=== PATIENT | female | born 1970 | race Caucasian/White ===

== ENCOUNTER 2017-12-24 13:00 | Outpatient (RCR) | payer OTHER, SELFPAY ==
--- NOTE | 2017-12-01 15:30 | IE_ITS ---
Date: 12/01/17 Referring: Yan Hilliard MD M.D. Diagnosis: s/p gastrocnemius equinus of left lower extremity, Impingement syndrome of left ankle, painful orthopaedic hardware, s/p removal P.T. Diagnosis: s/p gastrocnemius equinus of left lower extremity, Impingement syndrome of left ankle, painful orthopaedic hardware, s/p removal SUBJECTIVE: History of Present Illness: Patient is a 47 year old female referred for physical therapy s/p surgery for gastrocnemius equinus of left lower extremity, impingement syndrome of left ankle, and painful orthopaedic hardware on 11/13/[address] Yan Kiser MD. She had the hardware removed from lateral side of her ankle, gastrocnemius lengthening, and removal of scar tissue. Her original injury was a distal fibula fracture in June 2016 and she also developed complex regional pain syndrome. She states she is having bad nerve pain on the top of her left foot that goes up to level of her knee. She is sleeping with night splint that promotes dorsiflexion. She is having difficulty sleeping due to the pain and the boot being uncomfortable. She tries to sleep in the bed but states she gets her best sleep in the recliner. She is taking Tylenol and Ibuprofen for pain. She states ice helps but she has not been icing it recently. States she was ambulating with crutches until about a week ago. 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 She has numbness and tingling on the medial side of her ankle. Has some numbness and tingling on the lateral side of her ankle as well but this has improved. She is able to drive. She has follow up with surgeon on December 21. Pain Ratin-8/10 at rest, 8-9/10 at worst. Pain Location: left ankle and foot up anterior leg to knee level. Her nerve pain is the worst on the top of her foot. Prior Level of Function: independent Current Level of Function: difficulty sleeping, unable to work, difficulty playing hockey, difficulty negotiating stairs, difficulty ambulating community distances. Previous Treatment: Has had PT in the past for her left ankle. Social: Lives alone in home with 12 stairs. Is having difficulty negotiating the stairs. 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 Comorbidities: left distal fibula fracture on June 2016, complex regional pain syndrome affecting left foot, ankle, and leg Falls in the last year: No Reported hospitalizations in the last year - No Medications: Tylenol, Aleve Quality of Life: Good Standardized Measures: LEFS score: 68% impaired OBJECTIVE: Observation: All incisions are healing well without drainage. Has steri strips on incisions still, bruising left medial knee and inferior to medial malleoli Gait: Antalgic with decreased stance time on the left, decreased dorsiflexion and knee flexion on left, decreased estuardo, no AD. Edema: Minimal swelling left ankle. Girth measurements: Around malleoli right 23 cm, left 23.75cm. Midfoot right 21cm, left 21cm. ROM: Left ankle AROM DF lacking 5 degrees, PF 45 degrees, eversion 15 degrees, inversion 30 degrees. Right ankle AROM DF 10 degrees, PF 70 degrees, inversion 35 degrees, eversion 20 degrees. Hip and knee AROM WFL. Strength: Right ankle strength 5/5, left ankle strength not assessed at this time due to pain. Neuro: numbness and tingling left medial ankle and some in lateral ankle that has gotten better. Treatment: IE: 98853 Patient Education: Patient educated to use crutches or at least one crutch on her right side to help allow for a more normal gait pattern. Educated in home exercise program including ankle pumps, ankle circles, resisted DF, PF, EV, INV , side lying hip abduction, and bridges. Patient states she has orange, green, and blue theratubes at home. Patient given red theraband for ankle strengthening exercises. Educated to continue to ice at home. Cryotherapy x 10 minutes to left ankle in supine. Direct treatment time: 50 minutes Total treatment time: 60 minutes ASSESSMENT: Patient is a 47 year-old female referred for PT services with the diagnosis of s /p gastrocnemius equinus of left lower extremity, Impingement syndrome of left ankle, painful orthopaedic hardware. Patient presents with clinical signs and symptoms consistent with diagnosis, as demonstrated by the following impairment level findings: pain, swelling, decreased ROM, decreased motor control, impaired gait, impaired stair negotiation. Impairments are contributing to the following functional limitations: difficulty sleeping, unable to work, difficulty playing hockey, difficulty negotiating stairs, difficulty ambulating community distances. Patient is assessed as: Low 32174 complexity, based on the following: History: See comorbidities and social history. Examination: See above for functional limitations and impairments. Presentation: Stable Decision-Making: Low complexity 68 % Disability based on LEFS Patient requires skilled PT intervention to remediate the above functional limitations to return to: __X_ Premorbid level of function __X__ Return to full functional mobility __X__ Return to work demands __X__ Improve QOL Prognosis: Good STG: __6__ weeks. 1. Patient will report pain as no more than 6/10 in left ankle, foot, and leg. 2. Patient will demonstrate 5 degree improvement or better in left ankle AROM. 3. Patient will score 45% impaired or less on the LEFS. 4. Independent HEP. LTG: __12__ weeks. 1. Patient will report pain no more then 3/10 in left ankle, foot, and leg. 2. Patient will demonstrate 15 degree improvement in ankle PF and 10 degrees in DF AROM. 3. Patient will demonstrate 5/5 strength all LE muscle groups. 4. Patient will ambulate community distances on even and uneven surfaces independently with no antalgia. 5. Patient will negotiate 12 stairs independently with reciprocal pattern. 6. Patient will score 20% impaired or less on the LEFS. 7. Independent HEP PLAN: Patient to be seen 2 x per week, for 12 weeks, adjusting frequency of visits per patient symptoms and response to treatment. Will perform aquatic therapy once incisions are healed in about 6 weeks. Treatment to include: Manual therapy - 86625 PROM, soft tissue stretching, joint mobilizations, STM, scar tissue massage Therapeutic exercise - 66524. A/AAROM, LE strengthening, education in HEP, aquatic therapy once incisions have completely healed to avoid risk of infection. Gait training, stairs training, static and dynamic balance activities, cryotherapy for pain control. Thank you for this referral. Please do not hesitate to contact me with any questions or concerns regarding this patient's plan of care.
--- NOTE | 2017-12-03 13:54 | PTTR_ITS ---
DATE: 12/03/17 SUBJECTIVE: Corry indicates that she continues to be extremely sensitive in the scar region of the lateral left ankle. OBJECTIVE: Manual therapy: (53590b3). Did receive PROM into plantar flexion, dorsiflexion, inversion and eversion as well as lymph drainage throughout the entire left LE. Was instructed in stimulation of lymph nodes at the inguinal region and behind the knee. We did discuss continued use of crutches due to ongoing antalgia due to patient' s sensitivity in her left ankle. Therapeutic procedures (19262b9). * x HEP review: had patient perform 20 repetitions each of t-band resisted ( red) ankle PREs as well as AROM into dorsiflexion, plantar flexion and ankle circles clockwise and counter clockwise. Also, performed 20 repetitions each of left hip side lying abduction and bridging. Did require cueing for proper positioning and activation of specific muscles. * Ended with 10 minutes of cryotherapy to the left ankle with leg elevated via wedge pillow x10 minutes at no charge. Direct treatment time: 40 minutes Total treatment time: 40 minutes. SG/gc
--- NOTE | 2017-12-08 14:00 | PTTR_ITS ---
DATE: December 08, 2017 SUBJECTIVE: Ginette reports that she continues to note the nerve irritation to be the most annoying. She feels that her ROM is improving and that she is walking with less antalgia when she slows down. Swelling has been less. OBJECTIVE: Upon observation continues to present with moderate antalgia. She can self correct with a slower estuardo. Emphasized the focus on her heel to toe mechanics to avoid the compensatory gait. Manual therapy: (37304m6). Subtalar and talocrural joint mobilization provided throughout all planes to the left LE. STM throughout the entire left anterior and posterior lower leg. Scar desensitization also provided. P/AAROM performed throughout all planes. Improved end range mobility noted. Swelling has also reduced in comparison to IE. Therapeutic procedures (63379d4). * X See flow sheet: Incorporated theraband resistance training to the left ankle. Incorporated intrinsic stabilization of the foot with marble olive picker. Introduced cardiovascular endurance via NuStep. Was able to complete 10 minutes with manageable symptoms. Continued global LE strength with focus on the proximal stabilizers. See flow sheet for specifics. Fatigues quickly. * X Provided skilled instruction in proper exercise performance: promoting postural awareness and body mechanics * X Provided skilled manual cues to facilitate proper muscle recruitment and/ or movement pattern: avoiding compensatory movement patterns. Contrast Baths - 05981g4: Completed 3:1 ratio for a total of 12 minutes for desensitization to the left LE. Direct treatment time: 40 minutes Total treatment time: 52 minutes Will monitor her response to the contrast bath. Continue to advance per protocol. ROM steadily improving.
--- NOTE | 2017-12-10 14:30 | PTTR_ITS ---
DATE: 12/10/17 SUBJECTIVE: Corry indicates she continues to note discomfort in the lateral ankle region as well as ongoing electrical sensations when her lower leg is touched by her pets, or brushed up against something. Indicates she has been trying to do self massage for desensitization purposes. Manual therapy: (77218r7). Did receive subtalar, talocrural joint mobilizations as well as P/AAROM throughout all planes. Soft tissue mobilization throughout the L LE for lymph drainage as well as scar tissue massage was performed. Therapeutic procedures (36943m2). * X See flow sheet: focus was on strengthening of the L LE. * x Provided skilled instruction in proper exercise performance: * x Provided skilled manual cues to facilitate proper muscle recruitment and/ or movement pattern: Discussed importance of avoidance of limping, really focusing on heel to toe mechanics as discussed with primary therapist last session. Contrast Baths - 22715p8: Did complete this utilizing 3-1 hot/cold ratio x12 mins with L LE. Direct treatment time: 35 mins Total treatment time: 47 mins SG/dl
--- NOTE | 2017-12-15 09:40 | PTTR_ITS ---
DATE: 12/15/17 SUBJECTIVE: Corry states that she is doing fairly well. She continues to have hyper sensitivity t/o foot and anterior portion of ankle. OBJECTIVE: Manual therapy: (00140p8). mobilizations of foot and ankle including distractions, as well as ROM. Stretching of gastroc/soleus region. Scar tissue mobilizations t/o each incisional region. Therapeutic procedures (15172t1). * x See flow sheet: for global ankle strengthening as well as foot intrinsics. Finished via wellness at no charge. * x Provided skilled instruction in proper exercise performance: * x Contrast Baths - 91933k8: for desensitization purposes x 12 min. Direct treatment time: 30 min Total treatment time: 50 min
--- NOTE | 2017-12-17 13:30 | PTTR_ITS ---
DATE: December 17, 2017 SUBJECTIVE: Ginette continues to note ongoing nerve irritation as the primary complaint. She overall feels that her ROM and level of mobility continue to improve. She follows up with her surgeon on Thursday of next week. Will proceed via his order at that time. OBJECTIVE: Manual therapy: (78821k9).P/AAROM to the left ankle. Soft tissue stretching to the gastroc and soleus within symptom allowance. Scar tissue mobilization along with desensitization techniques throughout the LE. Subtalar and talucrural joint mobilization provided Gr II. Good end range mobility throughout all planes. Therapeutic procedures (43260h5). * X See flow sheet: Continued LE strength and stabilization program per protocol. Will continue with advancements within symptom tolerance and per MD order via protocol. * X Provided skilled instruction in proper exercise performance: * X Provided skilled manual cues to facilitate proper muscle recruitment and/ or movement pattern: Contrast Baths - 91421s4: 12 minutes 3 to 1 ratio to the left LE for pain and edema management along with desensitization. Direct treatment time: 35 minutes Total treatment time: 47 minutes
--- NOTE | 2017-12-22 11:18 | PTTR_ITS ---
DATE: 12/22/17 SUBJECTIVE: Corry states that she is doing a little better everyday. Her biggest complaint continues to be sharp shooting pain in front of foot and down to toes. OBJECTIVE: Manual therapy: (96637r7). mobilizations of foot and ankle including dorsal and volar glides, distractions and ROM. Scar tissue work t/o each incision region. I did utilize Graston tool FOR IASTM of her medial calf incision. Kinesiotape applied for scar tissue on this incision at of session. Therapeutic procedures (57701x4). * x See flow sheet: for global LE strength with focus on ankle as well as balance and proprioceptive work on a variety of surfaces. * x Provided skilled instruction in proper exercise performance: to avoid compensation. * x Contrast Baths - 50744j0: x 12 min to left foot, ending in the cold. Direct treatment time: 35 min Total treatment time: 50 min
--- NOTE | 2017-12-24 13:00 | PTTR_ITS ---
DATE: December 24, 2017 SUBJECTIVE: Ginette indicates she returned to work on Thursday 1/2 days. She has tolerated this well. She reports that her follow up went well and he is overall pleased with her improvement via Ginette's report. She will begin the aquatic program next week. She is in hopes that the water will reduce the nerve irritation that remains her chief complaint. OBJECTIVE: Manual therapy: (85102m1).Subtalar/talocrural joint mobilizations Gr II. P/ AAROM throughout all planes to the left. STM throughout the gastroc and soleus followed by scar tissue mobilization. Therapeutic procedures (91252c2). * X See flow sheet: Open and closed chain stabilization with progression per protocol. Increased closed chain and open chain strength and stabilization along with proprioceptive balance activities. * X Provided skilled instruction in proper exercise performance: * X Provided skilled manual cues to facilitate proper muscle recruitment and/ or movement pattern: Contrast Baths - 36536a3: 3 to 1 ratio for a total of 12 minutes to the left LE. Will proceed to the aquatic therapy setting with progression of protocol within symptom allowance. Will follow up in clinic in 2 weeks. Direct treatment time: 30 minutes Total treatment time: 42 minutes
== END 2017-12-25 23:59 | disposition home or self-care (01) ==
LOC: PT 13:00
PROVIDERS: PCP Nurse Practitioner Family
DX: S82.832D Other fracture of upper and lower end of left fibula, subsequent encounter for closed fracture with routine healing (principal)
CPT/HCPCS: 97034; 97110; 97140; 97161

== ENCOUNTER 2019-01-27 10:32 | Outpatient (CLI) | payer OTHER, SELFPAY ==
--- NOTE | 2019-01-27 10:27 | DI.RAD_ITS ---
EXAM: XR ANKLE LT COMPLETE INDICATION: HISTORY OF FRACTURE. COMPARISON: LEFT ANKLE COMPLETE from 04/15/2017 TECHNIQUE: 2D digital imaging was performed. FINDINGS: Three views were obtained. Previously described plate and screw fixation of the distal fibula has be en removed. The ankle mortise appears well maintained. 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 Minimal degenerative spurring noted at the tibiotalar kalpesh nt. IMPRESSION:
== END 2019-01-27 10:52 ==
PROVIDERS: PCP Nurse Practitioner Family; Visit Provider Student in an Organized Health Care Education/Training Program
DX: S82.65XD Nondisplaced fracture of lateral malleolus of left fibula, subsequent encounter for closed fracture with routine healing (principal); M81.8 Other osteoporosis without current pathological fracture
CPT/HCPCS: 73610

== ENCOUNTER 2019-11-09 01:26 | Outpatient (CLI) | payer MEDICAID, SELFPAY ==
[2019-11-09 13:13] LABS: HCT 41.9 % (36.0-46.0); HGB 14.7 g/dL (12.0-15.5); Mean Corp. HGB Concentration 35.1 g/dL (32.0-36.0); Mean Corpuscular Hemoglobin 33.1 pg (27.0-33.0); Mean Corpuscular Volume 94.4 fL (80-95); Mean Platelet Volume 10.3 fL (8.0-11.0); Platelet Count 225 x1000/uL (130-400); RBC 4.44 m/cumm (4.00-5.20); RBC Distribution Width 12.7 % (11.7-14.6); White Blood Cell Count 7.64 k/cumm (4.4-10.8)
[2019-11-09 14:12] LABS: Anion Gap 9.7 mmol/L (3-11); BUN 13 mg/dL (7-18); CO2 26.3 mmol/L (21.0-32.0); CREATININE 0.94 mg/dL (0.55-1.02); Calcium 8.8 mg/dL (8.5-10.1); Chloride 105 mmol/L (98-107); FREE T4 0.97 ng/dL (0.76-1.46); Glucose 125 mg/dL (74-106); Potassium 3.9 mmol/L (3.5-5.1); Sodium 141 mmol/L (136-145)
== END 2019-11-09 01:46 ==
PROVIDERS: PCP Nurse Practitioner Family; Visit Provider Nurse Practitioner Family
DX: R53.83 Other fatigue (principal); Z86.39 Personal history of other endocrine, nutritional and metabolic disease
CPT/HCPCS: 36415; 80048; 82306; 85027; 84439; 84443

== ENCOUNTER 2020-10-23 10:44 | Outpatient (REF) | payer MEDICAID, SELFPAY ==
[2020-10-23 22:07] LABS: Abs Immature Grans 0.03 10^3/uL (0.0-0.06); Absolute Basophil Count 0.08 10^3/uL (0.0-0.2); Absolute Eosinophil Count 0.75 10^3/uL (0.0-0.7); Absolute Lymphocyte Count 3.36 10^3/uL (1.2-3.4); Absolute Monocyte Count 0.61 10^3/uL (0.1-0.8); Absolute Neutrophil Count 3.77 10^3/uL (1.2-6.7); Basophils % 0.9; Eosinophils % 8.7; HCT 45.1 % (36.0-46.0); HGB 15.4 g/dL (11.2-15.7); Immature Grans % 0.3; Lymphocytes % 39.1; MCHC 34.1 % (32.0-36.0); MCV 96.6 fL (80-95); MPV 10.6 fL (8.0-11.0); Monocytes % 7.1; Neutrophils % 43.9; Nucleated RBC 0 %; Platelet Count 257 10^3/uL (130-400); RBC 4.67 10^6/uL (3.93-5.22); RDW 12.6 % (11.7-14.6); RDW-SD 44.9 fL
[2020-10-25 10:17] LABS: Lyme Ab w Rflx to Lyme Confirm Negative (Negative)
[2020-10-26 11:58] LABS: Anaplasma phagocytophilum Negative (Negative); B. miyamotoi PCR Negative (Negative); Babesia divergens/MO-1 Negative (Negative); Babesia duncani Negative (Negative); Babesia microti Negative (Negative); Ehrlichia chaffeensis Negative (Negative); Ehrlichia ewingii/canis Negative (Negative); Ehrlichia muris eauclairensis Negative (Negative)
== END 2020-10-23 10:45 | disposition home or self-care (01) ==
LOC: LBN 10:44
PROVIDERS: PCP Nurse Practitioner Family; Visit Provider Physician Assistant
DX: R53.83 Other fatigue (principal); L65.9 Nonscarring hair loss, unspecified
CPT/HCPCS: 87798; 84443; 85025; 86618

== ENCOUNTER 2020-11-02 20:35 | Outpatient (REF) | payer MEDICAID, SELFPAY ==
[2020-11-03 15:02] LABS: Total Iron Binding Capacity 369 ug/dL (250-450)
[2020-11-03 15:16] LABS: Ferritin 260 ng/mL (8-252)
[2020-11-05 15:29] LABS: ANA Interpretation Positive (Negative); ANA Titer Pattern 1:320 Homogeneous
== END 2020-11-02 20:36 | disposition home or self-care (01) ==
LOC: LBN 20:35
PROVIDERS: PCP Nurse Practitioner Family; Visit Provider Nurse Practitioner Family
DX: R53.83 Other fatigue (principal); L65.9 Nonscarring hair loss, unspecified
CPT/HCPCS: 82728; 83550; 86038

== ENCOUNTER 2020-11-14 16:41 | Outpatient (REF) | payer MEDICAID, SELFPAY ==
[2020-11-14 21:52] LABS: Ferritin 263 ng/mL (8-252)
[2020-11-14 22:29] LABS: Iron 113 ug/dL (50-170)
[2020-11-20 11:16] LABS: dsDNA Ab, IgG 12.3 IU/mL (<30.0)
== END 2020-11-14 16:42 | disposition home or self-care (01) ==
LOC: LBN 16:41
PROVIDERS: PCP Nurse Practitioner Family; Visit Provider Family Medicine
DX: D64.9 Anemia, unspecified (principal); R76.8 Other specified abnormal immunological findings in serum
CPT/HCPCS: 82728; 83540; 86225

== ENCOUNTER 2020-11-19 12:44 | Outpatient (REF) | payer MEDICAID, SELFPAY ==
[2020-11-19 15:10] LABS: ALT 32 U/L (14-59); AST 26 U/L (15-37); Albumin 3.4 g/dL (3.4-5.0); Alkaline Phosphatase 46 U/L (46-116); Anion Gap 9.2 mmol/L (3-11); BUN 11 mg/dL (7-18); Bilirubin, Total 0.5 mg/dL (0.2-1.0); C-Reactive Protein 0.39 mg/dL (0.0-0.3); CO2 26.8 mmol/L (21.0-32.0); CREATININE 0.9 mg/dL (0.55-1.02); Calcium 8.6 mg/dL (8.5-10.1); Chloride 108 mmol/L (98-107); Glucose 106 mg/dL (74-106); Potassium 4.7 mmol/L (3.5-5.1); Sodium 144 mmol/L (136-145); Total Protein 6.1 g/dL (6.4-8.2)
[2020-11-19 15:11] LABS: ESR < 1 mm/hr (0-20)
== END 2020-11-19 12:45 | disposition home or self-care (01) ==
LOC: LBN 12:44
PROVIDERS: PCP Nurse Practitioner Family; Visit Provider Nurse Practitioner Family
DX: R76.0 Raised antibody titer; R76.8 Other specified abnormal immunological findings in serum
CPT/HCPCS: 80053; 85652; 86140

== ENCOUNTER 2021-01-11 03:49 | Outpatient (CLI) | payer MEDICAID, SELFPAY ==
--- NOTE | 2021-01-11 07:45 | DI.US_ITS ---
Exam(s) US UPPER EXTREMITY VENOUS RT EXAM: US UPPER EXTREMITY VENOUS RT CLINICAL HISTORY: SWELLING OF VEIN,PHLEBITIS,I80.9. TECHNIQUE: Ultrasound examination of the right upper extremity venous system(s) is performed using g rayscale, color-flow, and spectral Doppler analysis. COMPARISON: No exams were available for comparison FINDINGS: The right internal jugular, axillary, subclavian, basilic, brachial, radial, and ulnar veins are miller nt without evidence of thrombosis. There is hypoechoic thrombus seen in the proximal to mid right ce phalic vein. It measures 11.2 cm in length. IMPRESSION: 1. No DVT. 2. Superficial thrombophlebitis of the right cephalic vein. DATA REPOSITORY:
== END 2021-01-11 04:09 ==
PROVIDERS: PCP Nurse Practitioner Family; Visit Provider Physician Assistant
DX: I80.8 Phlebitis and thrombophlebitis of other sites (principal)
CPT/HCPCS: 93971

== ENCOUNTER 2021-01-16 13:08 | Outpatient (REF) | payer MEDICAID, SELFPAY ==
[2021-01-17 14:14] LABS: COVID-19 RT-PCR UVMMC Result Negative (Negative)
== END 2021-01-16 13:09 | disposition home or self-care (01) ==
LOC: LBN 13:08
PROVIDERS: PCP Nurse Practitioner Family; Visit Provider Family Medicine
DX: Z20.822 Contact with and (suspected) exposure to COVID-19 (principal)
CPT/HCPCS: U0003

== ENCOUNTER 2021-01-21 03:22 | Outpatient (CLI) | payer MEDICAID, SELFPAY ==
[2021-01-21 07:29] LABS: Abs Immature Grans 0.02 10^3/uL (0.0-0.06); Absolute Basophil Count 0.11 10^3/uL (0.0-0.2); Absolute Eosinophil Count 0.35 10^3/uL (0.0-0.7); Absolute Lymphocyte Count 2.85 10^3/uL (1.2-3.4); Absolute Monocyte Count 0.53 10^3/uL (0.1-0.8); Absolute Neutrophil Count 2.74 10^3/uL (1.2-6.7); Basophils % 1.7; Eosinophils % 5.3; HCT 43.2 % (36.0-46.0); HGB 14.7 g/dL (11.2-15.7); Immature Grans % 0.3; Lymphocytes % 43.2; MCV 96.9 fL (80-95); MPV 9.9 fL (8.0-11.0); Neutrophils % 41.5; Nucleated RBC 0 %; Platelet Count 207 10^3/uL (130-400); RBC 4.46 10^6/uL (3.93-5.22); RDW 12.4 % (11.7-14.6)
[2021-01-21 07:39] LABS: ESR < 1 mm/hr (0-20)
[2021-01-21 07:44] LABS: PTT Activated 23.2 sec (21.0-27.5); Prothrombin Time 10.4 sec (9.3-11.0)
[2021-01-21 08:58] LABS: ALT 46 U/L (14-59); AST 34 U/L (15-37); Albumin 3.4 g/dL (3.4-5.0); Alkaline Phosphatase 45 U/L (46-116); Anion Gap 8.2 mmol/L (3-11); BUN 12 mg/dL (7-18); Bilirubin, Total 0.5 mg/dL (0.2-1.0); CO2 27.8 mmol/L (21.0-32.0); CREATININE 0.9 mg/dL (0.55-1.02); Calcium 8.7 mg/dL (8.5-10.1); Chloride 107 mmol/L (98-107); Glucose 100 mg/dL (74-106); Potassium 4.1 mmol/L (3.5-5.1); Sodium 143 mmol/L (136-145); Total Protein 6.3 g/dL (6.4-8.2)
== END 2021-01-21 03:23 | disposition home or self-care (01) ==
LOC: LBO 03:22
PROVIDERS: PCP Nurse Practitioner Family; Visit Provider Family Medicine
DX: I82.611 Acute embolism and thrombosis of superficial veins of right upper extremity (principal)
CPT/HCPCS: 36415; 80053; 85652; 85025; 85610; 85730

== ENCOUNTER 2021-02-11 01:48 | Outpatient (CLI) | payer MEDICAID, SELFPAY ==
--- NOTE | 2021-02-11 06:30 | DI.US_ITS ---
Exam(s) US UPPER EXTREMITY VENOUS RT EXAM: US UPPER EXTREMITY VENOUS RT CLINICAL HISTORY: Continued pain, reassess SUPERFIICAL VENOUS THROMBOSIS, ACUTE THROMBOSIS, TECHNIQUE: GRAYSCALE, COLOR, DOPPLER IMAGING OF THE VENOUS SYSTEM OF THE UPPER EXTREMITY-BILATERAL COMPARISON: US US UPPER EXTREMITY VENOUS RT from 01/11/2021 FINDINGS: Basilic vein: Patent. Normal color-flow and normal compression and augmentation properties. Brachial vein(s):Patent. Normal color flow. Normal compression and augmentation properties. Cephalic vein:Patent. Normal color flow. Normal compression and augmentation properties. Previousl y present intraluminal thrombus is no longer seen. Axillary vein: Patent. Normal color flow. Normal compression and augmentation properties. Visualized subclavian vein: Patent. No obvious intraluminal thrombus. IMPRESSION: 1. There is presently no evidence of venous thrombosis in the right upper extremity. The previously present thrombus in the right cephalic vein is no longer seen. 2. There are no abnormal fluid collections evident in the upper extremity. DATA REPOSITORY:
== END 2021-02-11 02:08 ==
PROVIDERS: PCP Nurse Practitioner Family; Visit Provider Nurse Practitioner Family
DX: I82.611 Acute embolism and thrombosis of superficial veins of right upper extremity (principal)
CPT/HCPCS: 93971

== ENCOUNTER 2021-09-14 12:09 | Emergency (ER) | payer MEDICAID, SELFPAY ==
[2021-09-14 12:14] VITALS: BP 118/75; PULSE 82; RESP 18; TEMP 36.3; O2SAT 99
--- NOTE | 2021-09-14 12:26 | W.ED.GENAD ---
Discharge Plan Disposition Patient Disposition: HOME Condition: Stable Discharge Details Clinical Impression: Diverticulitis Primary Care Provider: Unknown,Unknown ED Provider: Anna Joy Home Meds and New Rx's Prescriptions: Continued fluticasone propionate 50 mcg/actuation spray,suspension 2 spray ELI HS PRN Wobble Board Qty: 1 0RF Rx Instructions: Use wobble board for dynamic ankle stabilization. Mirena 20 mcg/24 hours (5 yrs) 52 mg intrauterine device 1 device Intrauterine ONCE Qty: 1 Label Comments: Inserted 04/2019 hydrocodone-acetaminophen 5-325 mg tablet PO PRN PRN Label Comments: TAKE 1 TABLET BY MOUTH EVERY 6 HOURS NEEDED FOR PAIN amoxicillin-pot clavulanate 875-125 mg tablet 1 tab PO Label Comments: TAKE 1 TABLET BY MOUTH EVERY 12 HOURS FOR 10 DAYS Discharge Instructions Instructions: Diverticulitis (ED), Diverticulitis Diet (ED) Additional Instructions: The CT today shows that you have something called diverticulitis. Continue the antibiotic regimen you were previously prescribed. Return to the ER or be seen sooner for any severe worsening in abdominal pain, blood in your stool vomiting unable to keep down the antibiotics or vomiting up blood. Follow up with primary care provider in 3-5 days. Return to ED sooner if any worsening or concerns. Increase oral fluids. Please take Tylenol or Ibuprofen with food every 4-6 hours as needed for pain and swelling. Stand Alone Forms: Work Release Medical Decision Making 51-year-old female presents to the ER with chief complaint of right lower quadrant abdominal pain which radiates into the right flank since Thursday. Patient was seen on Thursday had a CT and some labs at [facility] was diagnosed with a intestinal infection. She was given Augmentin and Vicodin at that time. She reports that she has continued pain and is not feeling any better. She reports some nausea no vomiting and does endorse loose diarrhea. Denies any recent travel she reports feeling hot but no documented fever. No history of abdominal surgeries. Past medical history includes depression, GERD. Work-up ordered including CBC, CMP, lipase. CBC shows no leukocytosis no left shift, CMP largely within normal limits. Urinalysis is within normal limits. CT abdomen pelvis without contrast ordered. This patient was evaluated during a time of global shortage of iodinated contrast media. Based on guidance from the [employer], best practices, and local institutional approaches as an alternative path for evaluating and managing the patient may have been implemented in order to provide optimal care during shortage. The current situation has been discussed with the patient. [id number]: Discussed CT results with patient who verbalized understanding. She reports that this is in conjunction or same as what she was told when she was evaluated earlier this week. It did discuss that the Augmentin that she is on is an appropriate antibiotic for this. I also did discuss that the other regimen is Cipro and Flagyl which can be hard on the stomach. I will give patient a work note I did encourage her to continue the current prescribed antibiotic regimen discussed red flags and strict return instructions she verbalizes understanding. This text was generated using [employer] system, please disregard any oddities of phrase or misspellings. Medical Records Medical records reviewed: Yes I reviewed the patient's medical records. Imaging Data Radiologic Study: Imaging: CT Scan Radiologist's impression: TECHNIQUE: Imaging protocol: Computed tomography of the abdomen and pelvis without contrast. COMPARISON: CT LEFT LOWER EXTREM WO CONTRAST 12/05/2017 15:08 FINDINGS: Liver: Normal. No mass. Gallbladder and bile ducts: Normal. No calcified stones. No ductal dilation. Pancreas: Normal. No ductal dilation. Spleen: Normal. No splenomegaly. Adrenal glands: Normal. No mass. Kidneys and ureters: Normal. No hydronephrosis. Stomach and bowel: Diverticuli of the sigmoid colon with bowel wall thickening and pericolonic fat infiltration consistent with early diverticulitis. Appendix: No evidence of appendicitis. Intraperitoneal space: Unremarkable. No free air. No significant fluid collection. Vasculature: Unremarkable. No abdominal aortic aneurysm. Lymph nodes: Unremarkable. No enlarged lymph nodes. Urinary bladder: Unremarkable as visualized. Reproductive: IUD in place. Bones/joints: Degenerative changes of the spine. Soft tissues: Umbilical hernia. IMPRESSION:Early diverticulitis of the sigmoid colon. Lab Data Lab results reviewed: Yes I reviewed the patient's lab results. Labs: Laboratory Tests Range/Units 09/14/21 09/14/21 09/14/21 12:30 12:41 12:41 WBC (4.4-10.8) 10^3/uL 7.32 RBC (3.93-5.22) 10^6/uL 4.35 Hgb (11.2-15.7) g/dL 14.5 Hct (36.0-46.0) % 41.2 MCV (80-95) fL 95 MCH (27.0-33.0) pg 33.3 H MCHC (32.0-36.0) % 35.2 RDW (11.7-14.6) % 11.7 Plt Count (130-400) 10^3/uL 248 MPV (8.0-11.0) fL 9.8 Immature Gran % 0.3 Neutrophils % 52.0 Lymphocytes % 28.3 Monocytes % 7.2 Eosinophils % 11.7 Basophils % 0.5 Nucleated RBC % (0.0-0.3) % 0.0 Absolute Neutrophils (1.2-6.7) 10^3/uL 3.80 Absolute Lymphocytes (1.2-3.4) 10^3/uL 2.07 Absolute Monocytes (0.1-0.8) 10^3/uL 0.53 Absolute Eosinophils (0.0-0.7) 10^3/uL 0.86 H Absolute Basophils (0.0-0.2) 10^3/uL 0.04 Sodium (136-145) mmol/L 137 Potassium (3.5-5.1) mmol/L 3.5 Chloride (98-107) mmol/L 104 Carbon Dioxide (21.0-32.0) mmol/L 27.2 Anion Gap (3-11) mmol/L 5.8 BUN (7-18) mg/dL 7 Creatinine (0.55-1.02) mg/dL 0.9 Estimated GFR/1.73 m2 (mL/min/1.73m2) >= 60.00 Glucose (74-106) mg/dL 102 Calcium (8.5-10.1) mg/dL 8.7 Magnesium (1.8-2.4) mg/dL 2.3 Total Bilirubin (0.2-1.0) mg/dL 0.3 AST (15-37) U/L 21 ALT (14-59) U/L 32 Alkaline Phosphatase (46-116) U/L 45 L Total Protein (6.4-8.2) g/dL 6.6 Albumin (3.4-5.0) g/dL 3.1 L Lipase (73-393) U/L 47 Urine Color (Yellow) Yellow Urine Clarity (Clear) Clear Urine pH (5-8) 5.5 Ur Specific [place] (1.005-1.025) 1.025 Urine Protein (Negative) mg/dL Negative Urine Ketones (Negative) mg/dL Negative Urine Blood (Negative) Negative Urine Nitrite (Negative) Negative Urine Bilirubin (Negative) Negative Urine Urobilinogen (Up TO 0.2) EU/dL 0.2 Ur Leukocyte Esterase (Negative) Negative Urine Glucose (Negative) mg/dL Negative HPI General Mode of arrival: ambulatory. Date/Time Provider Initiated Documentation: 09/14/21 12:10. Limitations to Documentation: no limitations. Information obtained by: patient, RN notes reviewed and old records reviewed. HPI Narrative: 51-year-old female presents to the ER with chief complaint of right lower quadrant abdominal pain which radiates into the right flank since Thursday. Patient was seen on Thursday had a CT and some labs at [facility] was diagnosed with a intestinal infection. She was given Augmentin and Vicodin at that time. She reports that she has continued pain and is not feeling any better. She reports some nausea no vomiting and does endorse loose diarrhea. Denies any recent travel she reports feeling hot but no documented fever. No history of abdominal surgeries. Past medical history includes depression, GERD. Related Data Home Medications Medication Instructions Recorded Confirmed levonorgestrel 20 mcg/24 hours (7 1 device intrauterine ONCE #1 12/04/19 09/14/21 yrs) 52 mg intrauterine device implant (Mirena) fluticasone propionate 50 2 spray intranasal HS PRN 10/23/20 01/25/21 mcg/actuation nasal spray,suspension amoxicillin 875 mg-potassium 1 tab PO 09/14/21 clavulanate 125 mg tablet hydrocodone 5 mg-acetaminophen 325 tab PO PRN PRN 09/14/21 mg tablet Allergies Allergy/AdvReac Type Severity Reaction Status Date / Time azelastine AdvReac Mild rash Verified 09/14/21 12:18 seasonal allergies AdvReac Uncoded 09/14/21 12:18 General Stated Complaint: Abd Prob KALI: 3 Review of Systems All systems reviewed & are unremarkable except as noted in HPI and below Gastrointestinal Gastrointestinal: Reports abdominal pain, Denies hematochezia, Reports diarrhea, Reports loose stools, Reports nausea and Denies vomiting Genitourinary Genitourinary: Denies urinary frequency PFSH All Active Problems (Updated 09/14/21 @ 14:42 by Anna Joy) Diverticulitis (Chronic) Superficial venous thrombosis of right upper extremity (Acute) Generalized anxiety disorder (Chronic) Positive SINGH (antinuclear antibody) (Acute) Deviated nasal septum (Chronic) Chronic pain of left ankle (Chronic) From fracture in 2017 s/p 3 surgeries Chronic rhinosinusitis (Chronic) Medical History GERD (gastroesophageal reflux disease) Negative EGD 06/14/03 Major depressive disorder Vitamin D deficiency Surgical History S/P left knee arthroscopy (~1990) S/P shoulder surgery (~08/2015) Left shoulder decompression and bicep tenodesis Status post ORIF of fracture of ankle (~12/11/16) x 3 of left ankle Family History Mother Ovarian cancer Hypertension Father Type 2 diabetes mellitus Prostate cancer Brother No problems noted. Daughter No problems noted. Maternal Grandfather No problems noted. Maternal Grandmother , in her 70s of breast cancer Breast cancer In her 70s which metastasized quickly Paternal Grandfather , in his 80s Heart disease Paternal Grandmother , in her 80s Aneurysm Social History Smoking/Tobacco Use Status: Never Smoking risk assessment performed?: Yes Alcohol Intake: never Drug use: Never Substance use type: does not use Do you feel safe at home: Yes Do you feel safe in your relationship?: Yes History History 1 Para 1 Hx # Term Pregnancies Multiple births Hx # Pregnancies Ectopic pregnancies AB induced Hx Number of Living Children 1 AB spontaneous Exam Narrative Exam Narrative: Constitutional: Alert and oriented x3. Appears stated age. Normal body habitus. Head: Normocephalic, no trauma. Eyes: Pupils PERRL, Red reflex noted, EOM's intact. Eyelids symmetrical without lesions, discharge, or swelling. ENT: Bilateral TM's WNL, External ear normal to inspection, no mastoid TTP, swelling, or erythema, Nasal turbinates WNL, no nasal discharge. Normal dentition, Posterior pharynx WNL, no exudate. Chest: RRR, Normal S1, S2, distal pulses intact. Resp: Lungs clear to auscultation bilaterally, no wheezes, rales, or rhonchi. Abdomen: Soft, non-distended, Normoactive bowel sounds all 4 quads. Tender to palpation right lower quadrant. Musculoskeletal: Normal gait, 5/5 strength to all four extremities. Skin: No suspicious rashes or lesions. Capillary refill less than 2 sec. Neurologic: Cranial nerves II-XII intact. Alert and oriented x 3. Motor: No deficits noted. Sensory: Intact bilaterally all 4 extremities. Reflexes: DTR's intact bilaterally.. Hematologic/Lymphatic: No ecchymosis, no lymphadenopathy. Course Vital Signs Vital signs: Vital Signs Temperature 36.3 C L 09/14/21 12:14 Pulse 82 09/14/21 12:14 Respiratory Rate 18 09/14/21 12:14 Blood Pressure 118/75 09/14/21 12:14 Pulse Oximetry 99 09/14/21 12:14 Temperature 36.3 C L 09/14/21 12:14 Temperature Source Temporal Artery Scan 09/14/21 12:14 Pulse 82 09/14/21 12:14 Respiratory Rate 18 09/14/21 12:14 Blood Pressure 118/75 09/14/21 12:14 Blood Pressure Position Sitting 09/14/21 12:14 Pulse Oximetry 99 09/14/21 12:14 Oxygen Delivery Method Room Air 09/14/21 12:14 Oxygen Flow Rate 0 09/14/21 12:14 Pain Level 8 09/14/21 12:14
[2021-09-14 12:53] LABS: Abs Immature Grans 0.02 10^3/uL (0.0-0.06); Absolute Basophil Count 0.04 10^3/uL (0.0-0.2); Absolute Eosinophil Count 0.86 10^3/uL (0.0-0.7); Absolute Lymphocyte Count 2.07 10^3/uL (1.2-3.4); Absolute Monocyte Count 0.53 10^3/uL (0.1-0.8); Basophils % 0.5; Eosinophils % 11.7; HCT 41.2 % (36.0-46.0); HGB 14.5 g/dL (11.2-15.7); Immature Grans % 0.3; Lymphocytes % 28.3; MCH 33.3 pg (27.0-33.0); MCHC 35.2 % (32.0-36.0); MCV 95 fL (80-95); MPV 9.8 fL (8.0-11.0); Monocytes % 7.2; Platelet Count 248 10^3/uL (130-400); RBC 4.35 10^6/uL (3.93-5.22); RDW 11.7 % (11.7-14.6); RDW-SD 40.9 fL; WBC 7.32 10^3/uL (4.4-10.8)
[2021-09-14 12:58] LABS: Bilirubin Negative (Negative); Blood Negative (Negative); Clarity Clear (Clear); Glucose Negative (Negative); Ketones Negative (Negative); Leukocyte Esterase Negative (Negative); Nitrite Negative (Negative); Specific Gravity 1.025 (1.005-1.025); Urobilinogen 0.2 EU/dL (Up TO 0.2); pH 5.5 (5-8)
--- NOTE | 2021-09-14 13:00 | DI.CT_ITS ---
Exam(s) CT ABDOMEN PELVIS WO EXAM: CT ABDOMEN PELVIS WO CLINICAL HISTORY: RLQ abd Pain/Flank pain, Diarrhea. TECHNIQUE: Imaging Protocol: Axial computed tomography images with coronal and sagittal reformatted images were created and reviewed. COMPARISON: No exams were available for comparison FINDINGS: Lack of IV contrast does limit evaluation of the abdominal pelvic organs. ABDOMEN: Lung Bases: Normal where visualized. Liver: Normal density. There is a 1.6 cm cyst in the left lobe of the liver. Gallbladder and biliary tract: There is layering debris in the gallbladder which may represent stones or sludge. Pancreas: Normal density, no abnormal calcifications or inflammatory process. Spleen: Normal. Kidneys: Normal size, contour and axis.No radiodense stones or obstructive uropathy. No masses seen. Adrenal glands: No mass is seen. Lymph nodes: Within normal limits. Abdominal Aorta: Abdominal portion non-dilated. Mild atherosclerosis. PELVIS: Bladder:Symmetric distention, no gross wall thickening. Bowel: There is diverticulosis seen in the colon. There is stranding around a diverticulum in the mi d sigmoid colon suggesting acute diverticulitis. No evidence of appendicitis. No evidence of bowel obstruction. Peritoneal cavity: No ascites, collection or mesenteric inflammatory response. No free air. Reproductive organs: There is an IUD in good position. Bones: Within normal limits. Soft Tissues: There is a small fat containing umbilical hernia. IMPRESSION: Acute sigmoid diverticulitis. No abscess or free air. RADIATION DOSE DELIVERED: 702.31mGy.cm Total DLP DATA REPOSITORY: All CT scans at this facility are submitted to the National Radiology Data Registry (NRDR) Dose Index Registry (DIR) with the [employer] ([employer]). RADIATION OPTIMIZATION: All CT scans at this facility use at least one of these dose optimization te chniques: automated exposure control; mA and/or kV adjustment per patient size (includes targeted exa ms where dose is matched to clinical indication); or iterative reconstruction.
[2021-09-14 13:07] LABS: ALT 32 U/L (14-59); AST 21 U/L (15-37); Albumin 3.1 g/dL (3.4-5.0); Alkaline Phosphatase 45 U/L (46-116); Anion Gap 5.8 mmol/L (3-11); BUN 7 mg/dL (7-18); Bilirubin, Total 0.3 mg/dL (0.2-1.0); CO2 27.2 mmol/L (21.0-32.0); CREATININE 0.9 mg/dL (0.55-1.02); Calcium 8.7 mg/dL (8.5-10.1); Chloride 104 mmol/L (98-107); Glucose 102 mg/dL (74-106); Lipase 47 U/L (73-393); Magnesium 2.3 mg/dL (1.8-2.4); Potassium 3.5 mmol/L (3.5-5.1); Sodium 137 mmol/L (136-145); Total Protein 6.6 g/dL (6.4-8.2)
[2021-09-14] MEDS: Ondansetron 4 MG/2 ML VIAL IVP (13:12)
[2021-09-14] MEDS: Normal Saline 1,000 ML 1000 ML IV (13:12)
--- NOTE | 2021-09-14 14:18 | DI.VRAD_ITS ---
PROCEDURE INFORMATION: Exam: CT Abdomen And Pelvis Without Contrast Exam date and time: 09/14/2021 1:24 PM Age: 51 years old Clinical indication: Other: Rlq abd pain/flank pain, diarrhea TECHNIQUE: Imaging protocol: Computed tomography of the abdomen and pelvis without contrast. COMPARISON: CT LEFT LOWER EXTREM WO CONTRAST 12/05/2017 15:08 FINDINGS: Liver: Normal. No mass. Gallbladder and bile ducts: Normal. No calcified stones. No ductal dilation. Pancreas: Normal. No ductal dilation. Spleen: Normal. No splenomegaly. Adrenal glands: Normal. No mass. Kidneys and ureters: Normal. No hydronephrosis. Stomach and bowel: Diverticuli of the sigmoid colon with bowel wall thickening and pericolonic fat infiltration consistent with early diverticulitis. Appendix: No evidence of appendicitis. Intraperitoneal space: Unremarkable. No free air. No significant fluid collection. Vasculature: Unremarkable. No abdominal aortic aneurysm. Lymph nodes: Unremarkable. No enlarged lymph nodes. Urinary bladder: Unremarkable as visualized. Reproductive: IUD in place. Bones/joints: Degenerative changes of the spine. Soft tissues: Umbilical hernia. IMPRESSION: Early diverticulitis of the sigmoid colon. Dictated and Authenticated by: Mere Leung MD. Ordering:HOMERO Castillo MD
[2021-09-14 14:53] VITALS: BP 122/72; PULSE 66; RESP 16; TEMP 36.6; O2SAT 100
== END 2021-09-14 15:06 | disposition home or self-care (01) ==
PROVIDERS: Emergency Provider Registered Nurse Emergency
DX: K57.92 Diverticulitis of intestine, part unspecified, without perforation or abscess without bleeding (principal); R10.31 Right lower quadrant pain
CPT/HCPCS: 36415; 80053; 81025; 83690; 96361; 96374; 99284; 74176; 81003; 83735; 85025; J2405